=== PATIENT | female | born 1990 | race Caucasian/White ===

== ENCOUNTER 2020-11-18 10:04 | Emergency (ER) | payer MEDICAID ==
[2020-11-18 10:24] VITALS: BP 110/67; PULSE 51
--- NOTE | 2020-11-18 10:35 | EDM.PDOC ---
ED HPI GENERAL MEDICAL PROBLEM - General Chief Complaint: Upper Extremity Injury/Pain Stated Complaint: LEFT ARM PAIN Time Seen by Provider: 11/18/20 10:29 Source of Information: Reports: Patient, RN Notes Reviewed History Limitations: Reports: No Limitations - History of Present Illness INITIAL COMMENTS - FREE TEXT/NARRATIVE: 30-year-old female presents emergency department a complaint of left elbow pain, she injured herself last night when she was working with her horses her elbow got crushed between horse and gait. She has been using ibuprofen with some pain relief but now the pain has increased - Related Data Allergies Allergy/AdvReac Type Severity Reaction Status Date / Time ibuprofen Allergy Swelling Verified 11/18/20 10:16 shrimp Allergy Swelling Verified 11/18/20 10:16 Home Meds: Home Meds NK [No Known Home Meds] 11/18/20 [History] Past Medical History HEENT History: Reports: Allergic Rhinitis, Otitis Media, Other (See Below) Other HEENT History: headaches new since october treating with chiropractor/oils Cardiovascular History: Reports: Arrhythmia Respiratory History: Reports: Asthma Gastrointestinal History: Reports: Chronic Constipation POT FIRER History: Reports: Musculoskeletal History: Reports: Fracture Neurological History: Reports: Concussion Dermatologic History: Reports: Eczema - Infectious Disease History Infectious Disease History: Reports: Chicken Pox - Past Surgical History Head Surgeries/Procedures: Reports: None HEENT Surgical History: Reports: None Cardiovascular Surgical History: Reports: None Respiratory Surgical History: Reports: None GI Surgical History: Reports: None Female Surgical History: Reports: Other (See Below) Neurological Surgical History: Reports: None Musculoskeletal Surgical History: Reports: Other (See Below) Other Musculoskeletal Surgeries/Procedures:: Hip fracture Dermatological Surgical History: Reports: None Social & Family History - Family History HEENT: Reports: Glaucoma Cardiac: Reports: [place], [place] Respiratory: Reports: Asthma, COPD GI: Reports: Cholelithiasis : Reports: None OBGYN: Reports: None Musculoskeletal: Reports: Osteoarthritis Neurological: Reports: None Psychiatric: Reports: Anxiety, Depression Endocrine/Metabolic: Reports: Diabetes, type II, Osteoporosis Hematologic: Reports: None Dermatologic: Reports: Eczema, Psoriasis Oncologic: Reports: Skin, Other (See Below) Other Oncologic Family History: stomach, rectal - Tobacco Use Tobacco Use Status *Q: Never Tobacco User Second Hand Smoke Exposure: No - Caffeine Use Caffeine Use: Reports: Coffee, Soda - Recreational Drug Use Recreational Drug Use: No Review of Systems - Review of Systems Review Of Systems: See Below Musculoskeletal: Reports: Arm Pain, Joint Pain (Elbow pain) ED EXAM, GENERAL - Physical Exam Exam: See Below Free Text/Narrative:: Examination of the left elbow I do appreciate some superficial abrasions around the elbow she has pain with any palpation to the elbow limited range of movement no pain with movement of the wrist no pain with movement of the shoulder no palpation pain is elicited on wrist or shoulder radial pulses +2 sensation is intact Exam Limited By: No Limitations General Appearance: Alert, WD/WN, No Apparent Distress Respiratory/Chest: No Respiratory Distress Course - Vital Signs Last Recorded V/S: Last Vital Signs Temp 96.9 F 11/18/20 10:21 Pulse 51 L 11/18/20 10:21 Resp 16 11/18/20 10:21 BP 110/67 11/18/20 10:21 Pulse Ox 100 11/18/20 10:21 Departure - Departure Time of Disposition: 11:01 Disposition: Home, Self-Care 01 Condition: Fair Clinical Impression: Contusion of elbow, left Qualifiers: Encounter type: initial encounter Qualified Code(s): S50.02XA - Contusion of left elbow, initial encounter - Discharge Information Instructions: Contusion, [id number] Referrals: Lexii Villa CNM [Primary Care Provider] - Forms: ED Department Discharge Additional Instructions: Continue to use ibuprofen or Motrin as needed for pain control, use hydrocodone for breakthrough pain please followup with your primary care provider in 3-5 days if not better, please call return to the emergency department with worsening of symptoms., Sepsis Event Note (ED) - Evaluation Sepsis Screening Result: No Definite Risk - Focused Exam Vital Signs: Vital Signs Temp Pulse Resp BP Pulse Ox 11/18/20 10:21 96.9 F 51 L 16 110/67 100 11/18/20 10:20 96.9 F 51 L 16 110/67 100 - Assessment/Plan Plan: Assessment Acuity = acute Site and laterality = Elbow contusion left Etiology = trauma with a horse Manifestations = none Location of injury = Home Lab values = x-ray elbow reveals no fractures Plan Continue with anti-inflammatories hydrocodone 5/325 1 tab p.o. 3 times daily as needed total #4 given for pain control follow-up primary care 3 to 5 days if not better This note was dictated using [employer] voice recognition software please call with any questions on syntax or grammar.
--- NOTE | 2020-11-18 10:54 | CR ---
Elbow Min 3V Lt CLINICAL HISTORY: Trauma FINDINGS: No acute fracture or dislocation is noted. The fat pads are are normal position. Impression: Negative.
== END 2020-11-18 11:08 | disposition home or self-care (01) ==
LOC: JP.ED 10:04
DX: S50.02XA Contusion of left elbow, initial encounter (principal); J45.909 Unspecified asthma, uncomplicated; Z88.6 Allergy status to analgesic agent; Z91.018 Allergy to other foods; W23.0XXA Caught, crushed, jammed, or pinched between moving objects, initial encounter
CPT/HCPCS: 73080-26-LT; 73080-LT; 99283; 99283-25

== ENCOUNTER 2023-05-17 09:18 | Emergency (ER) | payer MEDICAID ==
[2023-05-17 09:36] VITALS: BP 125/73; PULSE 68
[2023-05-17] MEDS ORDERED: Ondansetron 4 MG Tab.DIS PO ONE (09:50)
[2023-05-17] MEDS ORDERED: Acetaminophen 500 MG Tab PO ONE (09:59)
[2023-05-17 10:09] LABS: BASOPHILS PERCENT AUTO 0.4 % (0.1-1.3); EOSINOPHILS ABSOLUTE AUTO 0.07 K/uL (0.00-0.40); EOSINOPHILS PERCENT AUTO 1.4 % (0.0-5.4); HEMATOCRIT 35.3 % (34.3-46.0); HEMOGLOBIN 12.1 g/dL (11.2-15.5); IMMATURE GRAN PERCENT AUTO 0.2 % (0.0-0.7); LYMPHOCYTES ABSOLUTE AUTO 1.12 K/uL (0.8-3.3); LYMPHOCYTES PERCENT AUTO 23.1 % (11.4-47.7); MEAN CORPUSCULAR HEMOGLOBIN 31.1 pg (31.6-35.5); MEAN CORPUSCULAR HGB CONC 34.3 g/dL (31.6-35.5); MEAN CORPUSCULAR VOLUME 90.7 fL (81.4-99.0); MONOCYTES PERCENT AUTO 8.2 % (3.3-12.6); NEUTROPHILS ABSOLUTE AUTO 3.23 K/uL (1.0-7.6); NEUTROPHILS PERCENT AUTO 66.7 % (40.0-78.1); PLATELET COUNT,PLT 202 K/uL (130-375); RED BLOOD CELL COUNT 3.89 M/uL (3.77-5.24); WHITE BLOOD CELL COUNT,WBC 4.9 K/uL (3.2-11.0)
[2023-05-17 10:16] LABS: BASOPHILS ABSOLUTE AUTO 0.02 K/uL (0.00-0.10); IMMATURE GRAN ABSOLUTE AUTO 0.01 K/uL (0.00-0.23)
== END 2023-05-17 12:03 | disposition home or self-care (01) ==
LOC: JP.ED 09:18
DX: O20.0 Threatened abortion (principal); O26.851 Spotting complicating pregnancy, first trimester; O99.511 Diseases of the respiratory system complicating pregnancy, first trimester; J45.909 Unspecified asthma, uncomplicated; Z91.018 Allergy to other foods; Z88.8 Allergy status to other drugs, medicaments and biological substances; Z3A.08 8 weeks gestation of pregnancy
CPT/HCPCS: 36415; 76801; 85025; 86900; 86901; 99284; A9270; Q0162